=== PATIENT | male | born 1995 | race Caucasian/White ===

== ENCOUNTER 2022-05-31 23:24 | Emergency (ER) | payer OTHER, SELFPAY ==
[2022-05-31 23:33] VITALS: BP 125/69; PULSE 84; RESP 20; TEMP 37; O2SAT 96; BMI 24.3
--- NOTE | 2022-05-31 23:42 | DI.RAD.S_ITS ---
PROCEDURE: XR ANKLE RT MIN 3V INDICATIONS: pain in right ankle TECHNIQUE: 3 views of the ankle were acquired. COMPARISON: None. FINDINGS: Bones: No fractures or dislocations. Ankle mortise is normally aligned. No suspicious bony lesions. Soft tissues: Swelling at the lateral malleolus. No tibiotalar joint effusion. Achilles tendon appears normal. IMPRESSION: No acute osseous abnormality. Swelling at the lateral malleolus. Dictated by: Barry De La Cruz M.D. on 06/01/2022 at 0:01 Approved by: Barry De La Cruz M.D. on 06/01/2022 at 0:02
--- NOTE | 2022-06-01 01:34 | ED.LOWEXIN ---
HPI - Extremity Injury (Lower) General Chief Complaint: Extremity Injury, Lower Stated Complaint: RT. ankle pain/fell rolled ankle Time Seen by Provider: 06/01/22 01:34 Source: patient Mode of arrival: Wheelchair History of Present Illness HPI Narrative: This is a healthy 27-year-old male who presents with complaint of right ankle pain and swelling. Patient was at work he was pulling shade which was quite heavy while standing on ladder. He gave way and he fell backwards and stepped down to the ground. Ground was little bit farther than he expected and he inverted his ankle. Patient had immediate pain and swelling particularly over the lateral malleoli but some also over the medial. Patient states it has been painful to weightbear. He is not appreciate any bruising. No numbness, tingling or weakness. Denies any other injuries. Denies any other medical issues. No daily medications. No prior surgeries. No known drug allergies. Patient was at work when this occurred and has [employer] and [employer] paperwork with him. Uses tobacco, occasional ETOH, no illicit. Patient lives in [place] and is currently in the area working on a tugboat. Review of Systems Review of Systems ROS Unobtainable: All systems reviewed & are unremarkable except as noted in HPI and below Patient History Social History Smoking Status: Current some day smoker Smoking Status: Current some day smoker tobacco type: cigarettes alcohol intake frequency: a few times a week Alcohol type: beer Substance Use Type: does not use Exam Narrative Exam Narrative: GENERAL: Alert and oriented x three, well-nourished male in mild distress. HEENT: Head normocephalic, atraumatic, EOMI, pupils reactive, face symmetric, moist mucous membranes NECK: Supple, full range of motion CARDIOVASCULAR: Regular rate and rhythm without murmurs, rubs or gallops. RESPIRATORY: Breath sounds equal bilaterally, no wheezes rales or rhonchi. ABDOMEN: Soft, nontender. Normoactive bowel sounds all 4 quadrants. No guarding or rebound, rigidity, no mass EXTREMITIES: Normal range of motion, no clubbing. Neurovascularly intact. Patient has swelling over the lateral malleoli, patient has tenderness over the lateral malleoli, no ecchymosis, erythema or other skin color changes. Patient does not have any bony tenderness of the toes, foot, tibia fibula. Full range of motion but slightly decreased at the ankle. No joint laxity appreciated. NEUROLOGICAL: Cranial nerves II through XII grossly intact. Moving all extremities SKIN: Warm, dry, no petechiae, no rashes or lesions. Initial Vital Signs Initial Vital Signs: Vital Signs Temperature 98.6 F 05/31/22 23:33 Pulse Rate 84 05/31/22 23:33 Respiratory Rate 20 05/31/22 23:33 Blood Pressure 125/69 05/31/22 23:33 Pulse Oximetry 96 05/31/22 23:33 Oxygen Delivery Method Room Air 05/31/22 23:33 Course Orders Ordered: ED Orders 05/31/22 23:42 XR ankle RT min 3V Stat Vital Signs Vital signs: Vital Signs - 8 hr 05/31/22 23:33 Temperature 98.6 F Pulse Rate 84 Respiratory Rate 20 Blood Pressure 125/69 Pulse Oximetry 96 Oxygen Delivery Method Room Air MDM - Extremity Injury (Lower) Imaging Data Extremity x-ray #1: Radiologist's Impression: [address] [id number] XRay Report Signed Patient: Juanito Driscoll MR#: [id number] : 1995 Acct:[id number] Age/Sex: 27 / M Date of Service: 05/31/22 Loc: ED Accession Number: [id number] ?? Procedure: XR ankle RT min 3V Ordering Provider: Mary Eli D.O. PROCEDURE:? XR ANKLE RT MIN 3V ? INDICATIONS:? pain in right ankle ? TECHNIQUE:? 3 views of the ankle were acquired.? ? COMPARISON:? None. ? FINDINGS:? ? Bones:? No fractures or dislocations.? Ankle mortise is normally aligned.? No suspicious bony lesions.? ? Soft tissues:? Swelling at the lateral malleolus.? No tibiotalar joint effusion.? Achilles tendon appears normal.? ? ? IMPRESSION:? No acute osseous abnormality. Swelling at the lateral malleolus. ? ? ? Dictated by: Barry De La Cruz M.D. on 06/01/2022 at 0:01 ? ? Approved by: Barry De La Cruz M.D. on 06/01/2022 at 0:0 [facility] Narrative Medical decision making narrative: 27-year-old male with inversion injury to his right ankle, patient meets criteria for imaging. He has tenderness over the lateral malleoli inability to weightbear with significant swelling over that site. X-ray shows some swelling but no fracture or bony change. Patient was placed in ortho boot, crutches, Tylenol/ibuprofen as needed with ice as needed. Patient is instructed to follow up in next 7-10 days for recheck if not ambulating normally. Discharge Plan Departure Patient Disposition: Home Clinical Impression: Ankle sprain and strain Instructions: DI for Ankle Sprain Activity Restrictions/Additional Instructions: Follow-up in the next 7-10 days for recheck and possibly repeat imaging if you are continuing to have persistent pain and/or can not weightbear. You may weightbear as tolerated. You may take ibuprofen up to 600 mg every 6 hours and/or Tylenol up to a 1000 mg every 6 hours. Splint Care: Keep splint clean and dry. Elevated affected body part to decrease swelling. OK to use ice pack on the affected body part. Use for 15-20 minutes each time, for 5-6x per day. If you develop worsening pain, numbness, tingling, discoloration of the affected body part, loosen the splint by loosening the LIZETH wrap, and either see your doctor for an urgent re-assessment, or return to the Emergency Department. Return to the Emergency Department for any new or worsening symptoms. Stand Alone Forms: Patient Portal/API
== END 2022-06-01 02:24 | disposition home or self-care (01) ==
PROVIDERS: Emergency Provider Emergency Medicine
DX: S93.401A Sprain of unspecified ligament of right ankle, initial encounter (principal); W11.XXXA Fall on and from ladder, initial encounter; Y99.0 Civilian activity done for income or pay
CPT/HCPCS: 73610; 99282; 99283